=== PATIENT | male | born 1965 | race Caucasian/White ===

== ENCOUNTER 2023-04-16 19:55 | Emergency (ER) | payer OTHER, SELFPAY ==
--- NOTE | 2023-04-16 20:00 | DI.CT_ITS ---
Exam(s) CT ABDOMEN PELVIS WO/W EXAM: CT ABDOMEN PELVIS WO/W CLINICAL HISTORY: Please complete CT urogram. TECHNIQUE: Imaging Protocol: Axial computed tomography images with coronal and sagittal reformatted images were created and reviewed CONTRAST MATERIAL: Intravenous: Omnipaque-350 100cc Oral: None COMPARISON: No exams were available for comparison FINDINGS: VISUALIZED LUNG BASES: No nodules nor pleural effusions evident. ABDOMEN: There is no ascites. LIVER: Liver is hypodense implying steatosis. Slightly prominent size. No discrete focal hepatic le sions identified. No dilated. GALLBLADDER/BILIARY: No obvious gallbladder pathology. CBD is not dilated. PANCREAS: No evidence of pancreatic mass nor dilatation of the pancreatic duct. SPLEEN: Spleen is not enlarged. No obvious intrasplenic lesions. Small splenule noted. Splenic and portal veins are patent. ADRENALS: There are no significant adrenal masses. KIDNEYS:There is a nonobstructive 3 millimeter calculus in the inferior pole of the left kidney. The re is a small exophytic cyst off the lateral cortex of the left kidney which measures 8 x 8 mm. Ther e is an area of irregularity of the cortex of the anterior kidney measuring approximately 2 cm wide 1 cm deep by 2.5 cm cephalocaudal, this located just below the midline. This does not have appearance of typical cyst nor of a typical malignancy. Possibly represents an infectious process or site of p rior intervention. There is a solitary nondilated ureter on each side. No duplication there are no filling defects in t he renal pelves. Urinary bladder is partially collapsed. No obvious bladder mass. No bladder diver ticuli.. ABDOMINAL AORTA: Abdominal aorta is not enlarged. LYMPH NODES:There is no retroperitoneal nor paraaortic adenopathy. ABDOMINAL WALL: No evidence of significant anterior abdominal wall nor inguinal hernia. Subcutaneous stimulator over the posterior left flank noted. GI: There is no evidence of bowel obstruction, free air, nor abscess. PELVIS: GI: No evidence of appendicitis.No evidence of sigmoid diverticulitis. LYMPH NODES: There is no intrapelvic nor inguinal adenopathy. REPRODUCTIVE: Mildly enlarged prostate. Seminal vesicles unremarkable. URINARY BLADDER: No calculi nor obvious masses evident OSSEOUS: Mild nonacute wedge compression fracture of T12 evident. No acute fractures. No lytic nor blastic osseous lesions identified. IMPRESSION: 1. There is a small 3 millimeter nonobstructive calculus in lower pole calyx of the left kidney. No other calculi evident. No hydronephrosis. 2. There is a subtle irregularity of the anterior cortex in the lower half of the right kidney with a symmetric enhancement at this level. This does not have the appearance of a cyst nor typical maligna nt lesion. May represent infectious process. Appropriate follow-up recommended. 3. Solitary nondilated ureter on each side. 4. No obvious abnormality in the urinary bladder although the bladder is partially collapsed. RADIATION DOSE DELIVERED: 4,067.25mGy.cm Total DLP DATA REPOSITORY: All CT scans at this facility are submitted to the National Radiology Data Registry (NRDR) Dose Index Registry (DIR) with the [employer] (A[employer]). RADIATION OPTIMIZATION: All CT scans at this facility use at least one of these dose optimization te chniques: automated exposure control; mA and/or kV adjustment per patient size (includes targeted exa ms where dose is matched to clinical indication); or iterative reconstruction.
[2023-04-16 20:04] VITALS: BP 124/69; PULSE 101; RESP 18; TEMP 36.5; O2SAT 96
--- NOTE | 2023-04-16 20:05 | W.ED.GENAD ---
Discharge Plan Disposition Patient Disposition: Home Discharge Details Clinical Impression: Acute right flank pain, Proteinuria, Ketonuria Primary Care Provider: [facility] Provider: Fadi Brady Discharge Instructions Instructions: Flank Pain (ED) Additional Instructions: Please read all of the information that accompanies these instructions. You were seen in the emergency department for your abdominal pain. Your CAT scan showed no sign of any kidney stones nor any signs of any complication from your right renal resection site. Please schedule an appointment with your primary care provider next week. Please return to the emergency department if develop nausea vomiting fevers chills or have any other concerns. For your pain please take medications as follows: 1. Take acetaminophen (Tylenol), 1,000 mg (two 500 mg tabs) every 6 hours 2. Take ibuprofen (Advil), 400 mg every 8 hours. Discharge Data Discharge Date/Time-TO BE ENTERED AT DEPARTURE: 04/17/23 00:53 Medical Decision Making This is an uncomfortable appearing tachycardic but normothermic and not hypotensive 57-year-old male with right flank pain concerning for multiple etiologies. Ureterolithiasis is certainly a possibility given history of left nephrolithiasis but no history of ureterolithiasis. No rash to back to suggest zoster. Pain has been going on for several days and patient is not markedly hypotensive so my suspicion is low for ruptured AAA. No right lower quadrant tenderness to suggest appendicitis. No left lower quadrant tenderness to suggest diverticulitis. No pain out of proportion to suggest necrotizing soft tissue infection. No signs of cellulitis or abscess. No chest pain to suggest ACS. No cough nor fevers to suggest pneumonia. Doubt PE given no shortness of breath. Patient has been vomiting but is not having chest pain to suggest esophageal rupture. No tearing quality to pain to suggest aortic dissection. Given history of renal malignancy will complete CT abdomen pelvis with and without contrast to complete a CT urogram. 10:55 PM Comprehensive metabolic panel with mildly elevated BUN. Normal renal function. No LFT abnormalities. Mild hyperglycemia. Normal bicarbonate. No anion gap. Not consistent with DKA. Urinalysis showing trace ketonuria and proteinuria. Nitrite and leuk esterase negative. CBC with microcytosis but no anemia. No leukocytosis. No thrombocytopenia. Microscopy with no bacteria. No hematuria. 1157. I met with the patient following his reassuring CT scan. Patient reported that his pain was still persistent but felt slightly improved now that he had resolved nausea. He did not vomit in the ED. I advised ED return if he develop fevers or a rash which could represent zoster or if he had any sudden worsening of his pain. I also advised ED return if you develop chest pain dysuria or frequency. He understood his return indications and I discharged him with several doses of ondansetron to use as needed for nausea and an empiric trial of expectant outpatient managment. HPI General Date/Time Provider Initiated Documentation: 04/16/23 20:04. HPI Narrative: This is a 57-year-old male with a history of renal cell carcinoma status post cryoablation at [place] now with right-sided flank pain. Patient is moving his mother down to [place] where he lives. He has had some dysuria for the past several days and worsening right-sided flank pain. He has nephrolithiasis on the left but has never had ureterolithiasis. His pain has been worsening. It was gradual in onset. He denies routine tobacco and ethanol. He is having no chest pain no fevers nor chills. No history of falls. No pain in his penis. No pain in his back. [facility] All Active Problems (Updated 04/17/23 @ 10:20 by Fadi Brady MD) Acute right flank pain (Acute) Proteinuria (Acute) Ketonuria (Acute) Social History Smoking/Tobacco Use Status: Never Smoking risk assessment performed?: Yes Alcohol Intake: current Alcohol Intake frequency: holidays/special occasions only Drug use: Never Substance use type: does not use Details: [employer] Housing: house Do you feel safe at home: Yes Do you feel safe in your relationship?: Yes Exam Narrative Exam Narrative: General: Well-appearing in no acute distress speaking in complete sentences. Head: Normocephalic, atraumatic. Eye: Extraocular eye movements intact. No conjunctival injection. No scleral icterus. Ear, nose, mouth, throat: Grossly normal inspection. Normal voice, handling secretions normally. Neck: Trachea midline. Cardiovascular: Well-perfused distal extremities. Rapid regular rate Respiratory: Nonlabored respiration. Clear lungs bilaterally. Gastrointestinal: Nondistended abdomen. Soft nontender abdomen. Back: No midline thoracic nor lumbar spinal tenderness. No rash to back. No CVA tenderness. Musculoskeletal: No edema. Moving all 4 extremities spontaneously. Skin: Normal for age and race, grossly normal temperature and turgor. No acute rash. Neurologic: Alert and appropriate, no apparent acute deficits. Psychiatric: Mood and manner are appropriate. Grooming and personal hygiene are appropriate.
[2023-04-16 20:47] LABS: Abs Immature Grans 0.03 10^3/uL (0.0-0.06); Absolute Basophil Count 0.05 10^3/uL (0.0-0.2); Absolute Eosinophil Count 0.07 10^3/uL (0.0-0.7); Absolute Monocyte Count 0.54 10^3/uL (0.1-0.8); Absolute Neutrophil Count 8.26 10^3/uL (1.2-6.7); Basophils % 0.5; Eosinophils % 0.7; HCT 43.4 % (40.0-50.0); HGB 14.2 g/dL (13.5-17.5); Immature Grans % 0.3; Lymphocytes % 11.8; MCH 25.7 pg (27.0-33.0); MCHC 32.7 % (32.0-36.0); MCV 79 fL (80-95); MPV 9.9 fL (8.0-11.0); Monocytes % 5.3; Neutrophils % 81.4; Platelet Count 227 10^3/uL (130-400); RBC 5.53 10^6/uL (4.36-5.78); RDW 21.4 % (11.8-14.1); RDW-SD 58.9 fL; WBC 10.15 10^3/uL (4.4-10.8)
[2023-04-16] MEDS: fentaNYL 100 MCG/2 ML VIAL 75 MCG IVP (20:47)
[2023-04-16] MEDS: Normal Saline 500 ML IV (20:50)
[2023-04-16] MEDS: Ondansetron 4 MG/2 ML VIAL IVP ×2 (20:55→23:05)
[2023-04-16 21:02] LABS: Anisocytosis 2+; Diff Comment RBC Morph Reviewed
[2023-04-16 21:08] LABS: ALT 39 U/L (16-63); AST 19 U/L (15-37); Albumin 3.8 g/dL (3.4-5.0); Alkaline Phosphatase 105 U/L (46-116); Anion Gap 9.7 mmol/L (3-11); BUN 19 mg/dL (7-18); Bilirubin, Total 0.6 mg/dL (0.2-1.0); CO2 28.3 mmol/L (21.0-32.0); CREATININE 1.2 mg/dL (0.70-1.30); Calcium 9.5 mg/dL (8.5-10.1); Chloride 102 mmol/L (98-107); Estimated GFR 69.66 (mL/min/1.73m2); Glucose 154 mg/dL (74-106); Potassium 4.3 mmol/L (3.5-5.1); Sodium 140 mmol/L (136-145); Total Protein 7.6 g/dL (6.4-8.2)
[2023-04-16 21:59] LABS: Bilirubin Negative (Negative); Blood Negative (Negative); Clarity Clear (Clear); Glucose >=1000 mg/dL (Negative); Ketones Trace mg/dL (Negative); Leukocyte Esterase Negative (Negative); Nitrite Negative (Negative); Urobilinogen 0.2 mg/dL (Up to 0.2)
[2023-04-16 22:04] LABS: Bacteria Rare HPF (Negative); C & S Indicated? No; Casts Negative LPF (Negative); Crystals Negative HPF (Negative); Epithelial Cells Negative HPF (Negative); Mucus Negative (Negative); RBC Negative HPF (0-2); WBC Negative HPF (0-5)
[2023-04-16] MEDS: Omnipaque 350 MG/ML 100 ML BTL IJ (22:29)
[2023-04-16] MEDS: Normal Saline - Diluent 50 ML VIAL IJ (22:30)
--- NOTE | 2023-04-16 23:41 | DI.VRAD_ITS ---
PROCEDURE INFORMATION: Exam: CT Abdomen And Pelvis Without And With Contrast Exam date and time: 04/16/2023 22:32 Age: 57 years old Clinical indication: Abdominal pain; Prior surgery; Surgery date: 1-6 months; Surgery type: Cryoablation right kidney; Patient HX: HX of renal cell cacinoma TECHNIQUE: Imaging protocol: Computed tomography of the abdomen and pelvis without and with contrast. Contrast material: OMNIPAQUE 350; Contrast volume: 100 ml; Contrast route: INTRAVENOUS (IV); COMPARISON: No relevant prior studies available. FINDINGS: Tubes, catheters and devices: Thoracic epidural catheter, intact as visualized. Liver: Fatty liver with no mass lesions. Gallbladder and bile ducts: No calcified stones. No ductal dilation. Pancreas: No acute pancreatitis. Single tiny distal pancreatic calcification most commonly due to prior pancreatitis. Spleen: No splenomegaly. Adrenal glands: No mass. Kidneys and ureters: Minor mid right renal cortical defect suggesting a prior resection site, satisfactory appearance. No renal masses or hydronephrosis bilaterally. Tiny benign left renal cyst, no followup necessary. Punctate nonobstructive left nephrolithiasis. No right nephrolithiasis. No right hydronephrosis. Majority of the left ureter well opacified, right ureter partially opacified. Renal calices and pelvis well opacified bilaterally. No filling defects. Stomach and bowel: No focal pathology in the small bowel. No gross pathology in the small bowel without IV contrast. No colitis or diverticular disease. Appendix: No evidence of appendicitis. Intraperitoneal space: No free air. No significant fluid collection. Vasculature: No abdominal aortic aneurysm. Lymph nodes: No significantly enlarged lymph nodes. Urinary bladder: The bladder is decompressed and the wall is not well assessed. Posterior urinary bladder without filling defects on delayed imaging. Reproductive: Mild prostatic enlargement. Bones/joints: Chronic mild anterior loss of height at T12. No acute fracture or subluxation. Soft tissues: Tiny fat-containing umbilical hernia. IMPRESSION: 1. No acute findings on noncontrast imaging. 2. Right renal resection site, satisfactory appearance. 3. Punctate nonobstructive left nephrolithiasis. 4. Incidental findings as above Dictated and Authenticated by: Unique Santo MD. Ordering:JUAN Aponte MD
[2023-04-17 00:01] VITALS: PULSE 88; O2SAT 91
[2023-04-17 00:14] VITALS: BP 117/78; TEMP 37.1
[2023-04-17] MEDS: Ondansetron O.D.T. 4 MG TABEF, 3 TABS/BTL PO (00:45)
== END 2023-04-17 00:53 | disposition home or self-care (01) ==
PROVIDERS: Emergency Provider Emergency Medicine
DX: R10.9 Unspecified abdominal pain (principal); R80.9 Proteinuria, unspecified; R82.4 Acetonuria; R30.0 Dysuria; Z85.528 Personal history of other malignant neoplasm of kidney; R11.2 Nausea with vomiting, unspecified
CPT/HCPCS: 80053; 96361; 96374; 96375; 99285; 74178; 81003; 81015; 85025; 99284; J2405; J3010; J3490